=== PATIENT | female | born 1975 | race Caucasian/White ===

== ENCOUNTER 2017-12-08 12:30 | Inpatient (IN) | payer OTHER ==
[2017-12-08 12:47] VITALS: BMI 20.8
--- NOTE | 2017-12-08 15:26 | HP ---
DATE OF PLANNED PROCEDURE: 12/12/2017 PREOPERATIVE DIAGNOSES: Dysmenorrhea and irregular menstrual bleeding. HISTORY OF PRESENT ILLNESS: Ms. Nunu Magallon is a 42-year-old with 2 previous sections, who is a long time patient of Dr. Paddy Love , who was referred to me for surgical consult for hysterectomy. The patient has a long history of irregular periods and dysmenorrhea. Many years ago, her symptoms were controlled with oral contraceptive pills; however, she is a smoker. There are now contraindicated. The patient also tried to manage her symptoms with Depo-Provera, but with suboptimal results. Of note, the patient was counseled for a Mirena IUD versus an ablation; however, due to her anatomy and sharp flexion of her uterus, she was not a good candidate for either and was referred to me for this definitive surgical management. PAST MEDICAL HISTORY: Mood disorder. CURRENT MEDICATIONS: Fluoxetine 10 mg, Provera 10 mg, vitamin D. PAST SURGICAL HISTORY: section x2, tubal ligation and breast implants. SOCIAL HISTORY: Patient is a smoker, drinks caffeine. Denies alcohol use or drug use. She is employed and . Her partner has a vasectomy. FAMILY HISTORY: Noncontributory. GYNECOLOGIC HISTORY: Significant for remote history of abnormal Pap smear. Most recent Pap smear is negative for HPV and negative for intraepithelial lesion. 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 Endometrial thickness 4 mm. Right ovary normal size with a small follicle. Left ovary normal size. No fibroids, no masses, or free fluid. ASSESSMENT: Ms. Nunu Magallon is a 42-year-old multiparous female, who desires definitive management for her irregular periods and dysmenorrhea that affects her activities of daily living during her menstrual cycle. The patient has failed other medical options and is not a candidate for ablation or IUD placement. The patient understands the risk of surgery are to include, but not limited to bleeding, infection, damage to intra-abdominal pelvic organs, possible need of emergent laparotomy and inability to fully diagnose and treat all conditions at the time of surgery and possible need for future medical and/ or surgical management. The patient has been counseled and consented for robotic-assisted total laparoscopic hysterectomy with bilateral salpingectomy and plan for ovarian preservation. The patient's questions have been answered to her satisfaction, and she desires to proceed with the procedure as listed above. GAURAV
[2017-12-12] MEDS ORDERED: HYDROmorphone 0.5 MG/0.5 ML SYRINGE ONE ×2 (09:53→12:13)
[2017-12-12] MEDS ORDERED: Fentanyl 100 MCG/2 ML VIAL ONE ×3 (09:53→12:40)
[2017-12-12] MEDS ORDERED: Bupivacaine HCl 0.5%/Epinephrine 1:200,000/PF 30 ml Vial ONE (09:56)
[2017-12-12] MEDS ORDERED: CEFAZOLIN/Water 2 GM/20 ML SYRINGE ONE (10:01)
[2017-12-12] MEDS ORDERED: Promethazine HCl 25 MG/ML VIAL IM PRN ×2 (12:12→13:45)
[2017-12-12] MEDS ORDERED: Promethazine HCl 25 MG/ML VIAL SLOW IVP PRN (12:12)
[2017-12-12] MEDS ORDERED: Ondansetron HCl/PF 4 MG/2 ML Vial IVP PRN ×2 (12:12→13:45)
[2017-12-12] MEDS ORDERED: HYDROmorphone 2 MG/ML VIAL SLOW IVP PRN (12:12)
[2017-12-12] MEDS ORDERED: Promethazine HCl 25 MG/ML VIAL ONE (13:10)
--- NOTE | 2017-12-12 13:18 | OP ---
DATE OF PROCEDURE: 12/12/2017 PREOPERATIVE DIAGNOSES: Dysmenorrhea, menorrhagia. POSTOPERATIVE DIAGNOSES: Dysmenorrhea, menorrhagia. PROCEDURE PERFORMED: Robotic-assisted total laparoscopic hysterectomy with left salpingectomy. SURGEON: Adebayo Lujan D.O. SUPERVISOR ELECTRONICS ASSEMBLY: Paddy Love M.D. ANESTHESIA: GETA. COMPLICATIONS: None. ESTIMATED BLOOD LOSS: 50 mL. LAPAROSCOPIC FINDINGS: 1. Normal appearing uterus, left fallopian tube and bilateral ovaries, absence of right fallopian tu be, no intraabdominal adhesive disease noted. 2. Surgical sites hemostatic. PROCEDURE DETAILS: The patient was taken back to the OR with IV fluids running. Once she was in the OR, she was placed in dorsal supine position and general anesthesia was obtained. Once the patient was asleep, she was placed in low dorsal lithotomy position with her arms tucked at her side. The va clair and abdomen were prepped and draped in normal fashion for gynecologic laparoscopy. A Winkler cath eter was placed using sterile technique into the bladder was a Renetta syringe at the tip of the bladd er for manipulation of the bladder during the case. An operative speculum was placed into the vagina and the anterior lip of the cervix was identified and grasped with a single tooth tenaculum. The ce rvix was serially dilated to allow for passage of the uterine sound with the uterine depth of 6 cm no jf. It was then dilated further to allow for passage of the manipulator tip. The ANGEL Delfina manipula tor was then assembled with a 3 cm cup and a 6 cm tip. It was placed in the uterus and vagina in the normal fashion. After the uterine manipulator was in place, the surgeon's gloves were changed and a ttention was turned to the laparoscopic portion of the case. Beginning at the supraumbilical fold, l idocaine was placed under the skin and infiltrating the subdermal tissue. A 12 mm skin incision was made with the scalpel. A Veress needle was placed through the incision into the peritoneal cavity wi th insufflation of the abdomen without difficulty. After the abdomen was insufflated, the Veress nee dle was removed and a 12 mm trocar was placed through this incision. The laparoscope was then placed through this trocar with the above findings noted. The patient was then placed in Trendelenburg pos ition. The remaining 3 laparoscopic ports were placed, all under direct visualization and in similar fashion. The ports included a right and left lower quadrant 8 mm port for the robotic instruments and an criminal legal assistant right upper quadrant 11 mm port site. Once all 4 trocars were placed, the robot was docked at the patient's bedside and the procedure began. Beginning on the patient's left side, the left fallopian tube was grasped and elevated away from the ovary. Bipolar cautery was used to cauter ize the mesosalpinx dividing the fallopian tube away from the left adnexa and uterus. Once the fallo pian tube was completely dissected, it was transected and removed from the operating field for pathol ogic review. Next, the left utero-ovarian ligament was cauterized and divided with the ovary then fa lling away at the patient's left pelvic sidewall. The round ligament was then cauterized and divided into anterior and posterior leafs. The broad ligament was dissected down towards the level of the u terine artery and the uterine arteries were skeletonized. The anterior leaf of the broad ligament wa s taken across the lower portion of the cervix and the bladder was dissected away from the planned co lpotomy site. The uterine arteries were then cauterized and divided on the patient's left side. In similar fashion, attention was turned to the contralateral side. There was no fallopian tube and the ovary appeared normal. The utero-ovarian ligament was cauterized and divided with the right ovary f alling away from the uterus. The round ligament on the patient's right side was cauterized, incised, and divided into the anterior and posterior leafs. The broad ligament was dissected down towards th e level of the uterine artery and the bladder flap was completed by continuing the dissection from th e anterior leaf of the broad ligament on the right side towards the midline. The bladder was then ba ck filled with normal saline with bladder integrity noted in the colpotomy planned dissection site we ll away from the bladder. The bladder was then drained. The uterine arteries were then cauterized o n the patient's right side and transected. The vesicouterine tissue was further dissected dropping t he bladder well away from the colpotomy site. Colpotomy was then created beginning posteriorly and c ompleting the dissection circumferentially. Once the colpotomy was completed, the uterine specimen w as retracted into the vagina and remained there for pneumoperitoneum during the case. The pelvic arturo ewall dissections and the vaginal cuff were irrigated and any small areas of bleeding were controlled with bipolar cautery. The vaginal cuff was then closed in 2 layers with a Stratafix suture with he mostasis noted after closure. Once the vaginal cuff was closed, the pelvis was irrigated again and s uctioned dry. Both ureters were identified and noted to be vermiculating bilaterally. The pressure was dropped down to 6 mmHg with no evidence of bleeding. All instruments were removed from the abdom en and the counts were correct. The trocars were removed. The supraumbilical trocar was closed at t he fascial layer with Vicryl suture. All 4 skin incisions were closed with Monocryl and dressed with Dermabond dressing. The vagina was inspected after the specimen was removed with no bleeding noted and no trauma to the vagina noted. The patient was then cleaned, dried and taken to the recovery [facility] after extubation for postoperative care.
[2017-12-12] MEDS ORDERED: Meperidine HCl/PF 25 MG/ML VIAL SLOW IVP PRN (13:45)
[2017-12-12] MEDS ORDERED: Acetaminophen/Codeine 30-300mg Tablet PO PRN (13:45)
[2017-12-12] MEDS ORDERED: Bisacodyl 10 MG SUPP PR PRN (13:45)
[2017-12-12] MEDS ORDERED: Morphine 4 MG/ML Carpuject SLOW IVP PRN (13:45)
[2017-12-12] MEDS ORDERED: Zolpidem Tartrate 5 MG TAB PO PRN (13:45)
[2017-12-12] MEDS ORDERED: Simethicone Chewable 80 MG TAB PO PRN (13:45)
[2017-12-12] MEDS ORDERED: diphenhydrAMINE 25 MG CAP PO PRN (13:45)
[2017-12-12] MEDS ORDERED: Morphine 5 MG/ML SYRINGE SLOW IVP PRN (13:56)
[2017-12-12] MEDS ORDERED: Nicotine 14 MG PATCH TD SCH (14:00)
[2017-12-12] MEDS: Sodium Chloride 0.9% 1,000 ML IV SCH (14:48)
[2017-12-12] MEDS ORDERED: Metoclopramide HCl 10 MG/2 ML VIAL ONE (15:30)
[2017-12-12] MEDS ORDERED: ePHEDrine/0.9% NaCl/PF SYRINGE 50 mg/10 ml ONE (15:30)
[2017-12-12] MEDS ORDERED: Ondansetron HCl/PF 4 MG/2 ML Vial ONE (15:30)
[2017-12-12] MEDS ORDERED: Dexamethasone 20 MG/5 ML VIAL ONE (15:30)
[2017-12-12] MEDS ORDERED: PROPOFOL 200 MG/20 ML VIAL ONE (15:30)
[2017-12-12] MEDS ORDERED: Glycopyrrolate 0.2 MG/ML 5 ML SYRINGE ONE (15:30)
[2017-12-12] MEDS ORDERED: Ketorolac Tromethamine 30 MG/ML VIAL ONE (15:30)
[2017-12-12] MEDS ORDERED: Lidocaine 1% PF 5 ML VIAL ONE (15:30)
[2017-12-12] MEDS: Ketorolac Tromethamine 30 MG/ML VIAL IVP SCH (17:26)
[2017-12-13] MEDS: Ketorolac Tromethamine 30 MG/ML VIAL IVP SCH ×2 (00:23→06:15)
[2017-12-13] MEDS: Sodium Chloride 0.9% 1,000 ML IV SCH ×2 (00:36→08:15)
[2017-12-13] MEDS: Acetaminophen/Codeine 30-300mg Tablet PO PRN ×2 (03:01→09:14)
--- NOTE | 2017-12-13 08:47 | PDOC.EVN ---
Event Note - Event Note Event Note: POD1 S: minimal discomfort, ambulating, tolerating regular diet, voiding without difficulty O: Vital Signs (12 hours) Temp Pulse Resp BP Pulse Ox 12/13/17 08:13 98.4 F 69 20 12/13/17 03:01 98.4 F 69 20 97/60 97 12/13/17 00:40 98.4 F 55 L 20 95/52 L 95 12/12/17 22:15 98 Weight Weight 133 lb Gen: NAD CHEST: nonlabored breathign Abd: soft, nondistended, inc CDI X 4 Angelica: dry Ext: no cords Path pending A/P: POD #1 RATLH and left salpingectomy, doing well, goals met, DC today.
[2017-12-13] MEDS ORDERED: Loratadine/Pseudoephedrine 10/240 mg Tablet PO SCH (09:00)
[2017-12-13 09:17] VITALS: BP 124/67; TEMP 97.6
[2017-12-17] MEDS ORDERED: Ibuprofen 800 MG TAB PO SCH (22:00)
== END 2017-12-13 09:36 | disposition home or self-care (01) | DRG 743 ==
LOC: SURG A 12-12 07:22 → 3SE 12-12 13:20
PROVIDERS: ADMIT Obstetrics & Gynecology; ATTEND Obstetrics & Gynecology
PROC: 0UT9FZZ Resection of Uterus, Via Natural or Artificial Opening With Percutaneous Endoscopic Assistance (ICD-10-PCS; principal; 2017-12-12)
PROC: 0UT6FZZ Resection of Left Fallopian Tube, Via Natural or Artificial Opening With Percutaneous Endoscopic Assistance (ICD-10-PCS; 2017-12-12)
PROC: 8E0W4CZ Robotic Assisted Procedure of Trunk Region, Percutaneous Endoscopic Approach (ICD-10-PCS; 2017-12-12)
DX: N92.0 Excessive and frequent menstruation with regular cycle (principal); F17.210 Nicotine dependence, cigarettes, uncomplicated; N94.6 Dysmenorrhea, unspecified; F39 Unspecified mood [affective] disorder
CPT/HCPCS: 88307; J0131; J0670; J1100; J1170; J1885; J2001; J2405; J2550; J2704; J2765; J3010

== ENCOUNTER 2017-12-08 12:34 | Outpatient (CLI) | payer OTHER ==
[2017-12-08 13:49] LABS: Hemoglobin 14.9 g/dL (12.0-16.0); Mean Corpuscular HGB CONC 33.3 g/dL (32.0-36.0); Mean Corpuscular Hemoglobin 32.2 pg (27.0-31.0); Mean Corpuscular Volume 96.7 fl (81.0-99.0); Mean Platelet Volume 7.2 fL (7.4-10.4); Platelet Count 307 thou/uL (130-400); RBC Distribution Width 11.8 % (11.5-14.5); Red Blood Cell (RBC) Count 4.63 mill/uL (4.20-5.40); White Blood Cell (WBC) Count 14.6 thou/uL (4.8-10.8)
== END 2017-12-08 12:35 | disposition home or self-care (01) ==
LOC: LABBT 12:34
PROVIDERS: ATTEND Obstetrics & Gynecology
DX: Z01.812 Encounter for preprocedural laboratory examination (principal); N92.0 Excessive and frequent menstruation with regular cycle; N94.6 Dysmenorrhea, unspecified
CPT/HCPCS: 85027; 86850; 86900; 86901